=== PATIENT | female | born 1960 | race Caucasian/White ===

== ENCOUNTER 2018-03-20 11:32 | Emergency (ER) | payer MEDICARE, MEDICAID ==
[2018-03-20] MEDS ORDERED: Sodium Chloride 0.9% 10 ML Syringe FLUSH PRN (12:02)
[2018-03-20] MEDS ORDERED: Sodium Chloride 0.9% 1,000 ML IV ONE (12:02)
[2018-03-20] MEDS ORDERED: Albuterol/Ipratropium 3.0-0.5 MG/3 ML Neb Soln NEB ONE (12:02)
[2018-03-20 13:55] LABS: ANION GAP 9.2 mmol/L (10-20)
--- NOTE | 2018-03-20 13:58 | EDM.PDOC ---
ED HPI GENERAL MEDICAL PROBLEM - General Chief Complaint: Neurological Problem Stated Complaint: difficult to rouse in morning, slow Time Seen by Provider: 03/20/18 11:34 Source of Information: Reports: Family History Limitations: Reports: Physical Impairment (down's syndrome) - History of Present Illness INITIAL COMMENTS - FREE TEXT/NARRATIVE: Patient arrives via EMS with complaints from the sister that over the last 2 days Devorah has been hard to wake in the morning and very tired all day. On arrival to the unit, her oxygen level was 85% per EMS on room air. Currently wearing 3L and saturations are low to mid 90's. History taking is difficult from the patient herself, however her sister seems to be primary caregiver and knows her quite well. Sister denies fever, chills, states she has not complained of chest pain or pressure. No complaints of urinary burning, frequency, or hematuria. No blood in stools. No vomiting. Endorses weakness and tiredness over last 2 days. Location: Reports: Generalized Associated Symptoms: Reports: No Other Symptoms Treatments HEAD OF MARKETING: Reports: Oxygen - Related Data Allergies Allergy/AdvReac Type Severity Reaction Status Date / Time Dairy Products Allergy Diarrhea Verified 03/20/18 12:02 Home Meds: Home Meds FLUoxetine [PROzac] 10 mg DAILY 03/20/18 [History] Fludrocortisone [Florinef] 0.1 mg DAILY 03/20/18 [History] Levothyroxine 125 mcg DAILY 03/20/18 [History] risperiDONE [Risperidone] 2 ml BEDTIME 03/20/18 [History] ED ROS GENERAL - Review of Systems Review Of Systems: See Below Constitutional: Reports: No Symptoms HEENT: Reports: No Symptoms Respiratory: Reports: Shortness of Breath Cardiovascular: Reports: No Symptoms Endocrine: Reports: No Symptoms GI/Abdominal: Reports: No Symptoms : Reports: No Symptoms Musculoskeletal: Reports: No Symptoms Skin: Reports: No Symptoms Neurological: Reports: Weakness Psychiatric: Reports: No Symptoms Hematologic/Lymphatic: Reports: No Symptoms Immunologic: Reports: No Symptoms - Physical Exam Exam: See Below Exam Limited By: Physical Impairment General Appearance: Alert, WD/WN, No Apparent Distress Eye Exam: Bilateral Eye: EOMI, Normal Inspection, PERRL Ears: Normal TMs Throat/Mouth: Normal Inspection, Normal Lips, Normal Teeth, Normal Gums, Normal Oropharynx, Normal Voice, No Airway Compromise Head Exam: Atraumatic, Normocephalic Neck: Normal Inspection, Supple, Non-Tender, Full Range of Motion Respiratory/Chest: Wheezing Cardiovascular: Systolic Murmur, Irregularly Irregular GI/Abdominal: Normal Bowel Sounds, Soft, Non-Tender, No Organomegaly, No Distention, No Abnormal Bruit, No Mass Neuro Exam (Abbreviated): Alert, CN II-XII Intact, No Motor/Sensory Deficits Extremities: Normal Inspection, Normal Range of Motion, Non-Tender, No Pedal Edema, Normal Capillary Refill Psychiatric: Normal Affect, Normal Mood Skin Exam: Warm, Dry, Intact, Normal Color, No Rash Course - Vital Signs Last Recorded V/S: Last Vital Signs Temp 37.2 C 03/20/18 11:32 Pulse 93 03/20/18 11:32 Resp 20 03/20/18 11:32 BP 137/80 03/20/18 11:32 Pulse Ox 85 L 03/20/18 11:34 - Orders/Labs/Meds Orders: Active Orders 24 hr Category Date Time Status EKG Documentation Completion [RC] ROUTINE Care 03/20/18 12:02 Ordered Oxygen Therapy Adult [Oxygen Therapy, ED] [RC] Care 03/20/18 12:04 Ordered ASDIRECTED RT Aerosol Therapy [RC] ASDIRECTED Care 03/20/18 12:03 Ordered Chest 1V Frontal [CR] Stat Exams 03/20/18 12:02 Ordered CULTURE BLOOD [BC] Stat Lab 03/20/18 12:03 Ordered CULTURE BLOOD [BC] Stat Lab 03/20/18 12:03 Ordered CULTURE URINE [RM] Stat Lab 03/20/18 12:02 Ordered UA W/MICROSCOPIC [URIN] Stat Lab 03/20/18 12:02 Ordered Sodium Chloride 0.9% [Saline Flush] Med 03/20/18 12:02 Ordered 10 ml FLUSH ASDIRECTED PRN Blood Culture x2 Reflex Set [OM.PC] Stat Oth 03/20/18 12:02 Ordered Saline Lock Insert [OM.PC] Routine Oth 03/20/18 12:02 Ordered Medication Orders Sodium Chloride (Saline Flush) 10 ml FLUSH ASDIRECTED PRN PRN Reason: Keep Vein Open Labs: Laboratory Tests 03/20/18 03/20/18 03/20/18 Range/Units 12:35 13:07 13:07 WBC 7.6 (4.0-10.0) x10^3/uL RBC 4.96 (4.00-5.50) x10^6/uL Hgb 16.3 H (12.0-16.0) g/dL Hct 50.3 H (33.0-47.0) % MCV 101.4 H (78.0-93.0) fL MCH 32.9 H (26.0-32.0) pg MCHC 32.4 (32.0-36.0) g/dL RDW Coeff of Edwin 18.2 H (10.0-15.0) % Plt Count 200 (130-400) x10^3/uL Neut % (Auto) 81.4 H (50.0-80.0) % Lymph % (Auto) 13.3 L (25.0-50.0) % Schley % (Auto) 4.9 (2.0-11.0) % Eos % (Auto) 0.3 (0.0-4.0) % Baso % (Auto) 0.1 L (0.2-1.2) % PT (9.6-11.4) SEC INR (2.0-3.5) D-Dimer, Quantitative (<=0.58) mg/LFEU Sodium 143 (136-145) mmol/L Potassium 4.2 (3.5-5.1) mmol/L Chloride 105 (98-107) mmol/L Carbon Dioxide 33 H (21-32) mmol/L Anion Gap 9.2 L (10-20) mmol/L BUN 8 (7-18) mg/dL Creatinine 1.0 (0.55-1.02) mg/dL Est Cr Clr Drug Dosing 45.12 mL/min Estimated GFR (MDRD) 57 Glucose 111 H (74-106) mg/dL Lactic Acid (0.4-2.0) mmol/L Calcium 8.4 L (8.5-10.1) mg/dL Corrected Calcium 9.44 (8.5-10.1) mg/dL Total Bilirubin 0.5 (0.2-1.0) mg/dL AST 11 L (15-37) U/L ALT 11 L (14-59) U/L Alkaline Phosphatase 66 (46-116) U/L Creatine Kinase 30 (26-192) U/L Troponin I 0.034 (<=0.056) ng/mL NT-Pro-B Natriuret Pep 1945 H (<=125) pg/mL Total Protein 6.7 (6.4-8.2) g/dL Albumin 2.7 L (3.4-5.0) g/dL Globulin 4.0 Albumin/Globulin Ratio 0.68 TSH, Ultra Sensitive 0.575 (0.358-3.74) uIU/mL Urine Color Yellow (YELLOW) Urine Appearance Slightly cloudy H (CLEAR) Urine pH 7.0 (5.0-8.0) Ur Specific [place] 1.025 Urine Protein Trace H (NEGATIVE) mg/dL Urine Glucose (UA) Negative (NEGATIVE) mg/dL Urine Ketones Negative (NEGATIVE) mg/dL Urine Occult Blood Negative (NEGATIVE) Urine Nitrite Negative (NEGATIVE) Urine Bilirubin Negative (NEGATIVE) Urine Urobilinogen 0.2 (0.2) EU/dL Ur Leukocyte Esterase Negative (NEGATIVE) Urine RBC 0-5 (NOT SEEN) /HPF Urine WBC 0-5 (NOT SEEN) /HPF Ur Squamous Epith Cells Many H (NEGATIVE) /HPF Urine Bacteria Few H (NEGATIVE) /HPF Urine Mucus Moderate H (NEGATIVE) /LPF 03/20/18 03/20/18 03/20/18 Range/Units 13:07 13:07 13:07 WBC (4.0-10.0) x10^3/uL RBC (4.00-5.50) x10^6/uL Hgb (12.0-16.0) g/dL Hct (33.0-47.0) % MCV (78.0-93.0) fL MCH (26.0-32.0) pg MCHC (32.0-36.0) g/dL RDW Coeff of Edwin (10.0-15.0) % Plt Count (130-400) x10^3/uL Neut % (Auto) (50.0-80.0) % Lymph % (Auto) (25.0-50.0) % Schley % (Auto) (2.0-11.0) % Eos % (Auto) (0.0-4.0) % Baso % (Auto) (0.2-1.2) % PT 12.1 H (9.6-11.4) SEC INR 1.2 L (2.0-3.5) D-Dimer, Quantitative 0.48 (<=0.58) mg/LFEU Sodium (136-145) mmol/L Potassium (3.5-5.1) mmol/L Chloride (98-107) mmol/L Carbon Dioxide (21-32) mmol/L Anion Gap (10-20) mmol/L BUN (7-18) mg/dL Creatinine (0.55-1.02) mg/dL Est Cr Clr Drug Dosing mL/min Estimated GFR (MDRD) Glucose (74-106) mg/dL Lactic Acid 2.0 (0.4-2.0) mmol/L Calcium (8.5-10.1) mg/dL Corrected Calcium (8.5-10.1) mg/dL Total Bilirubin (0.2-1.0) mg/dL AST (15-37) U/L ALT (14-59) U/L Alkaline Phosphatase (46-116) U/L Creatine Kinase (26-192) U/L Troponin I (<=0.056) ng/mL NT-Pro-B Natriuret Pep (<=125) pg/mL Total Protein (6.4-8.2) g/dL Albumin (3.4-5.0) g/dL Globulin Albumin/Globulin Ratio TSH, Ultra Sensitive (0.358-3.74) uIU/mL Urine Color (YELLOW) Urine Appearance (CLEAR) Urine pH (5.0-8.0) Ur Specific [place] Urine Protein (NEGATIVE) mg/dL Urine Glucose (UA) (NEGATIVE) mg/dL Urine Ketones (NEGATIVE) mg/dL Urine Occult Blood (NEGATIVE) Urine Nitrite (NEGATIVE) Urine Bilirubin (NEGATIVE) Urine Urobilinogen (0.2) EU/dL Ur Leukocyte Esterase (NEGATIVE) Urine RBC (NOT SEEN) /HPF Urine WBC (NOT SEEN) /HPF Ur Squamous Epith Cells (NEGATIVE) /HPF Urine Bacteria (NEGATIVE) /HPF Urine Mucus (NEGATIVE) /LPF Meds: Medications Generic Name Dose Route Start Last Admin Trade Name Freq PRN Reason Stop Dose Admin Sodium Chloride 10 ml 03/20/18 12:02 Saline Flush FLUSH ASDIRECTED PRN Keep Vein Open Discontinued Medications Generic Name Dose Route Start Last Admin Trade Name Freq PRN Reason Stop Dose Admin Albuterol/Ipratropium 3 ml 03/20/18 12:02 03/20/18 12:59 Duoneb 3.0-0.5 Mg/3 Ml NEB 03/20/18 12:03 3 ml ONETIME ONE Administration Sodium Chloride 1,000 mls @ 999 mls/hr 03/20/18 12:02 03/20/18 12:45 Normal Saline IV 03/20/18 13:02 999 mls/hr ONETIME ONE Administration - Radiology Interpretation Free Text/Narrative:: chest x-ray shows right lung atelectasis, other varela normal x-ray - Re-Assessments/Exams Free Text/Narrative Re-Assessment/Exam: 03/20/18 14:16 I did visit with Dr. Jara regarding patient care. He agrees with providing a full work up with regards to her daytime somnolence and hypoxia. Departure - Departure Time of Disposition: 14:24 Disposition: Home, Self-Care 01 Condition: Fair Clinical Impression: CHF (congestive heart failure), Hypoxia, sleep related - Discharge Information *PRESCRIPTION DRUG MONITORING PROGRAM REVIEWED*: Not Applicable *COPY OF PRESCRIPTION DRUG MONITORING REPORT IN PATIENT CONNOR: Not Applicable Instructions: Heart Failure, [id number], Hypoxia, Sleep Apnea, [id number], Sleep Studies Referrals: Sha Jara MD [Primary Care Provider] - Forms: ED Department Discharge Additional Instructions: Please see DR. Jara over in the clinic after leaving here. Your labs show some elevated BNP which can indicate heart failure and increased fluid, your urine was largely normal and did not indicate a urinary infection. I would visit with Dr. Jara regarding a sleep study and a night time CPAP machine for sleep apnea, restarting oxygen, and look into a water pill that will minimally effect your blood pressure. If you have further questions or concerns, please call us at any time. - Problem List & Annotations (1) CHF (congestive heart failure) SNOMED Code(s): 01863719 Code(s): I50.9 - HEART FAILURE, UNSPECIFIED Status: Acute Priority: Medium Current Visit: Yes Qualifiers: Heart failure type: unspecified Heart failure chronicity: unspecified Qualified Code(s): I50.9 - Heart failure, unspecified (2) Hypoxia, sleep related SNOMED Code(s): 527063404 Code(s): G47.34 - IDIO SLEEP RELATED NONOBSTRUCTIVE ALVEOLAR HYPOVENTILATION Status: Acute Priority: Medium Current Visit: Yes - Problem List Review Problem List Initiated/Reviewed/Updated: Yes - My Orders Last 24 Hours: My Active Orders 03/20/18 12:02 EKG Documentation Completion [RC] ROUTINE Chest 1V Frontal [CR] Stat CULTURE URINE [RM] Stat UA W/MICROSCOPIC [URIN] Stat Sodium Chloride 0.9% [Saline Flush] 10 ml FLUSH ASDIRECTED PRN Blood Culture x2 Reflex Set [OM.PC] Stat Saline Lock Insert [OM.PC] Routine 03/20/18 12:03 RT Aerosol Therapy [RC] ASDIRECTED CULTURE BLOOD [BC] Stat CULTURE BLOOD [BC] Stat 03/20/18 12:04 Oxygen Therapy Adult [Oxygen Therapy, ED] [RC] ASDIRECTED - Assessment/Plan Last 24 Hours: My Active Orders 03/20/18 12:02 EKG Documentation Completion [RC] ROUTINE Chest 1V Frontal [CR] Stat CULTURE URINE [RM] Stat UA W/MICROSCOPIC [URIN] Stat Sodium Chloride 0.9% [Saline Flush] 10 ml FLUSH ASDIRECTED PRN Blood Culture x2 Reflex Set [OM.PC] Stat Saline Lock Insert [OM.PC] Routine 03/20/18 12:03 RT Aerosol Therapy [RC] ASDIRECTED CULTURE BLOOD [BC] Stat CULTURE BLOOD [BC] Stat 03/20/18 12:04 Oxygen Therapy Adult [Oxygen Therapy, ED] [RC] ASDIRECTED Assessment:: hypoxia CHF Plan: Please see DR. Jara over in the clinic after leaving here. Your labs show some elevated BNP which can indicate heart failure and increased fluid, your urine was largely normal and did not indicate a urinary infection. I would visit with Dr. Jara regarding a sleep study and a night time CPAP machine for sleep apnea, restarting oxygen, and look into a water pill that will minimally effect your blood pressure. If you have further questions or concerns, please call us at any time.
== END 2018-03-20 14:45 | disposition home or self-care (01) ==
LOC: VM.ED 11:32
DX: G47.34 Idiopathic sleep related nonobstructive alveolar hypoventilation (principal); I50.9 Heart failure, unspecified; Z91.011 Allergy to milk products
CPT/HCPCS: 36415; 71045; 80053; 81001; 82550; 83605; 83880; 84443; 84484; 85025; 85379; 85610; 87040; 87086; 87186; 93005; 96360; 99285; J7030; J7620-GY

== ENCOUNTER 2023-12-04 12:46 | Emergency (ER) | payer MEDICARE, MEDICAID ==
[2023-12-04 13:28] LABS: APPEARANCE,URINE CLEAR (CLEAR); BILIRUBIN,URINE NEGATIVE (NEGATIVE); COLOR,URINE LIGHT YELLOW (YELLOW); GLUCOSE,URINE NEGATIVE (NEGATIVE); KETONES,URINE NEGATIVE (NEGATIVE); LEUKOCYTE ESTERASE,URINE NEGATIVE (NEGATIVE); NITRITE,URINE NEGATIVE (NEGATIVE); OCCULT BLOOD,URINE TRACE-INTACT (NEGATIVE); PH,URINE 7.5 (5.0-8.0); PROTEIN,URINE NEGATIVE (NEGATIVE); UROBILINOGEN,URINE 0.2 EU/dL (0.2)
[2023-12-04 13:30] LABS: BACTERIA,URINE NOT SEEN /HPF (NOT SEEN); MUCUS,URINE NOT SEEN /LPF (NOT SEEN); RBC,URINE 0-5 /HPF (NOT SEEN); SQUAMOUS EPITHELIAL CELLS,UR RARE /HPF (NOT SEEN); WBC,URINE 0-5 /HPF (NOT SEEN)
[2023-12-04 13:44] LABS: EOSINOPHILS PERCENT AUTO 0.6 % (0.0-4.0); HEMATOCRIT 33.5 % (33.0-47.0); HEMOGLOBIN 11.2 g/dL (12.0-16.0); IMMATURE GRAN ABSOLUTE AUTO 0.01 x10^3/uL (0.00-0.07); LYMPHOCYTES ABSOLUTE AUTO 0.9 x10^3/uL (1.0-4.8); LYMPHOCYTES PERCENT AUTO 19.2 % (25.0-50.0); MEAN CORPUSCULAR HEMOGLOBIN 33.5 pg (26.0-32.0); MEAN CORPUSCULAR HGB CONC 33.4 g/dL (32.0-36.0); MEAN CORPUSCULAR VOLUME 100.3 fL (78.0-93.0); MONOCYTES ABSOLUTE AUTO 0.4 x10^3/uL (0.0-0.8); MONOCYTES PERCENT AUTO 8.5 % (2.0-11.0); NEUTROPHILS ABSOLUTE AUTO 3.4 x10^3/uL (1.8-7.7); NEUTROPHILS PERCENT AUTO 71.5 % (50.0-80.0); PLATELET COUNT,PLT 119 x10^3/uL (130-400); RED BLOOD CELL COUNT 3.34 x10^6/uL (4.00-5.50); WHITE BLOOD CELL COUNT,WBC 4.8 x10^3/uL (4.0-10.0)
[2023-12-04 14:01] LABS: A/G RATIO 0.54; ALANINE AMINOTRANSFERASE,ALT 8 U/L (14-59); ALKALINE PHOSPHATASE 82 U/L (46-116); ASPARTATE AMNIOTRANSFERASE,AST 21 U/L (15-37); BILIRUBIN TOTAL 0.6 mg/dL (0.2-1.0); BLOOD UREA NITROGEN,BUN 8 mg/dL (7-18); C-REACTIVE PROTEIN 5.76 mg/dL (<=0.50); CALCIUM 7.9 mg/dL (8.5-10.1); CARBON DIOXIDE,CO2 31 mmol/L (21-32); CHLORIDE,CL 106 mmol/L (98-107); CREATININE 0.6 mg/dL (0.55-1.02); ESTIMATED GFR 101 mL/min (>=60); GLUCOSE RANDOM 111 mg/dL (70-99); PROTEIN TOTAL,TP 5.7 g/dL (6.4-8.2); SODIUM,NA 141 mmol/L (136-145)
== END 2023-12-04 15:20 | disposition home or self-care (01) ==
LOC: SUPCPDRO 12:46 → VM.ED 12:46
DX: S82.301A Unspecified fracture of lower end of right tibia, initial encounter for closed fracture (principal); S82.831A Other fracture of upper and lower end of right fibula, initial encounter for closed fracture; E03.9 Hypothyroidism, unspecified; Z91.011 Allergy to milk products; Z79.899 Other long term (current) drug therapy; W19.XXXA Unspecified fall, initial encounter
CPT/HCPCS: 36415; 71045; 73600-RT; 80053; 81001; 85025; 86140; 99283; 99284

== ENCOUNTER 2024-02-02 13:07 | Emergency (ER) | payer MEDICARE, MEDICAID ==
[2024-02-02] MEDS: Nystatin Crm 30 GM Tube TOP SCH (14:15)
[2024-02-02 14:19] LABS: APPEARANCE,URINE CLEAR (CLEAR); COLOR,URINE POC YELLOW (YELLOW); PH,URINE 6.5 (5.0-8.0); PROTEIN,URINE POC NEGATIVE (NEGATIVE)
[2024-02-02 14:20] LABS: BILIRUBIN,URINE POC NEGATIVE (NEGATIVE); GLUCOSE,URINE POC NEGATIVE (NEGATIVE); KETONES,URINE POC NEGATIVE (NEGATIVE); LEUKOCYTE ESTERASE,URINE POC NEGATIVE (NEGATIVE); NITRITE,URINE POC NEGATIVE (NEGATIVE); OCCULT BLOOD,URINE POC NEGATIVE (NEGATIVE); UROBILINOGEN,URINE POC 0.2 (0.2)
== END 2024-02-02 14:50 | disposition home or self-care (01) ==
LOC: VM.ED 13:07
DX: B37.9 Candidiasis, unspecified (principal); I50.9 Heart failure, unspecified; E03.9 Hypothyroidism, unspecified; E66.9 Obesity, unspecified; Z79.899 Other long term (current) drug therapy; Z91.011 Allergy to milk products; Z68.30 Body mass index [BMI] 30.0-30.9, adult
CPT/HCPCS: 81002; 87086; 99284; A9270

== ENCOUNTER 2024-08-29 10:15 | Emergency (ER) | payer MEDICARE, MEDICAID ==
[2024-08-29] MEDS ORDERED: Sodium Chloride 0.9% 10 ML Syringe FLUSH PRN (10:39)
[2024-08-29 11:07] LABS: BASOPHILS PERCENT AUTO 0.2 % (0.2-1.2); HEMATOCRIT 33.1 % (33.0-47.0); HEMOGLOBIN 11.3 g/dL (12.0-16.0); IMMATURE GRAN ABSOLUTE AUTO 0.01 x10^3/uL (0.00-0.07); LYMPHOCYTES ABSOLUTE AUTO 0.9 x10^3/uL (1.0-4.8); LYMPHOCYTES PERCENT AUTO 10.3 % (25.0-50.0); MEAN CORPUSCULAR HEMOGLOBIN 34.3 pg (26.0-32.0); MEAN CORPUSCULAR HGB CONC 34.1 g/dL (32.0-36.0); MEAN CORPUSCULAR VOLUME 100.6 fL (78.0-93.0); MONOCYTES ABSOLUTE AUTO 0.3 x10^3/uL (0.0-0.8); MONOCYTES PERCENT AUTO 2.8 % (2.0-11.0); NEUTROPHILS ABSOLUTE AUTO 7.7 x10^3/uL (1.8-7.7); NEUTROPHILS PERCENT AUTO 86.6 % (50.0-80.0); PLATELET COUNT,PLT 119 x10^3/uL (130-400); RED BLOOD CELL COUNT 3.29 x10^6/uL (4.00-5.50); WHITE BLOOD CELL COUNT,WBC 8.9 x10^3/uL (4.0-10.0)
[2024-08-29 11:19] LABS: APPEARANCE,URINE CLEAR (CLEAR); BILIRUBIN,URINE NEGATIVE (NEGATIVE); COLOR,URINE YELLOW (YELLOW); GLUCOSE,URINE NEGATIVE (NEGATIVE); KETONES,URINE TRACE mg/dL (NEGATIVE); LEUKOCYTE ESTERASE,URINE NEGATIVE (NEGATIVE); NITRITE,URINE NEGATIVE (NEGATIVE); OCCULT BLOOD,URINE NEGATIVE (NEGATIVE); PROTEIN,URINE 30 mg/dL (NEGATIVE); UROBILINOGEN,URINE 0.2 EU/dL (0.2)
[2024-08-29 11:28] LABS: LACTIC ACID 1.1 mmol/L (0.4-2.0)
[2024-08-29 11:28] LABS: RBC,URINE 0-5 /HPF (NOT SEEN); SQUAMOUS EPITHELIAL CELLS,UR FEW /HPF (NOT SEEN); WBC,URINE 0-5 /HPF (NOT SEEN)
[2024-08-29 11:29] LABS: BACTERIA,URINE RARE /HPF (NOT SEEN); MUCUS,URINE FEW /LPF (NOT SEEN)
[2024-08-29 11:34] LABS: A/G RATIO 0.57; ALANINE AMINOTRANSFERASE,ALT 24 U/L (14-59); ALBUMIN 2.1 g/dL (3.4-5.0); ALKALINE PHOSPHATASE 69 U/L (46-116); ASPARTATE AMNIOTRANSFERASE,AST 25 U/L (15-37); BILIRUBIN TOTAL 0.7 mg/dL (0.2-1.0); BLOOD UREA NITROGEN,BUN 11 mg/dL (7-18); CALCIUM 8.1 mg/dL (8.5-10.1); CARBON DIOXIDE,CO2 31 mmol/L (21-32); CHLORIDE,CL 103 mmol/L (98-107); CREATININE 0.8 mg/dL (0.55-1.02); GLUCOSE RANDOM 109 mg/dL (70-99); MAGNESIUM 2.2 mg/dL (1.8-2.4); POTASSIUM,K 4.2 mmol/L (3.5-5.1); PROTEIN TOTAL,TP 5.8 g/dL (6.4-8.2); SODIUM,NA 140 mmol/L (136-145); TSH ULTRASENSITIVE 2.375 uIU/mL (0.358-3.74)
[2024-08-29 11:36] LABS: ANION GAP 10.2 mmol/L (5-15); ESTIMATED GFR 83 mL/min (>=60)
[2024-08-29] MEDS: cefTRIAXone 1 GM Vial IVPUSH ONE (11:36)
[2024-08-29] MEDS: Lactated Ringers 1,000 ML IV ONE (11:38)
[2024-08-29] MEDS: Hydrocortisone Sodium Succinate 100 MG/2 ML SDV IVPUSH ONE (12:23)
== END 2024-08-29 12:45 | disposition home or self-care (01) ==
LOC: VM.ED 10:15
DX: J18.9 Pneumonia, unspecified organism (principal); E86.0 Dehydration; E03.9 Hypothyroidism, unspecified; E66.9 Obesity, unspecified; Z79.899 Other long term (current) drug therapy; Z91.011 Allergy to milk products
CPT/HCPCS: 36415; 70450; 71045; 80053; 81001; 83605; 83735; 84443; 85025; 86140; 87040; 87428-QW; 96361; 96374; 96375; 99284; 99285-25; J0696; J1720; J7120

== ENCOUNTER 2024-09-02 15:38 | Inpatient (IN) | payer MEDICARE, MEDICAID ==
[2024-09-02 17:33] LABS: BASOPHILS PERCENT AUTO 0.2 % (0.2-1.2); EOSINOPHILS ABSOLUTE AUTO 0.2 x10^3/uL (0.0-0.5); EOSINOPHILS PERCENT AUTO 1.7 % (0.0-4.0); HEMATOCRIT 23.7 % (33.0-47.0); IMMATURE GRAN ABSOLUTE AUTO 0.05 x10^3/uL (0.00-0.07); LYMPHOCYTES ABSOLUTE AUTO 1.1 x10^3/uL (1.0-4.8); LYMPHOCYTES PERCENT AUTO 11.8 % (25.0-50.0); MEAN CORPUSCULAR HEMOGLOBIN 35.2 pg (26.0-32.0); MEAN CORPUSCULAR HGB CONC 33.8 g/dL (32.0-36.0); MEAN CORPUSCULAR VOLUME 104.4 fL (78.0-93.0); MONOCYTES ABSOLUTE AUTO 0.5 x10^3/uL (0.0-0.8); MONOCYTES PERCENT AUTO 5.9 % (2.0-11.0); NEUTROPHILS ABSOLUTE AUTO 7.2 x10^3/uL (1.8-7.7); NEUTROPHILS PERCENT AUTO 79.8 % (50.0-80.0); PLATELET COUNT,PLT 137 x10^3/uL (130-400); RED BLOOD CELL COUNT 2.27 x10^6/uL (4.00-5.50)
[2024-09-02] MEDS: Sodium Chloride 0.9% 1,000 ML IV ONE (17:45)
[2024-09-02 17:53] LABS: A/G RATIO 0.52; ALBUMIN 1.7 g/dL (3.4-5.0); BILIRUBIN TOTAL 0.5 mg/dL (0.2-1.0); CALCIUM 7.8 mg/dL (8.5-10.1); CREATININE 0.6 mg/dL (0.55-1.02); EST CRCL DRUG DOSING (CG) 69.83 mL/min; POTASSIUM,K 3.4 mmol/L (3.5-5.1)
[2024-09-02 17:54] LABS: ANION GAP 8.4 mmol/L (5-15)
[2024-09-02 17:55] LABS: LACTIC ACID 0.5 mmol/L (0.4-2.0)
[2024-09-02 19:41] LABS: APPEARANCE,URINE SLIGHTLY CLOUDY (CLEAR); BILIRUBIN,URINE SMALL (NEGATIVE); COLOR,URINE DARK YELLOW (YELLOW); GLUCOSE,URINE NEGATIVE (NEGATIVE); KETONES,URINE 15 mg/dL (NEGATIVE); LEUKOCYTE ESTERASE,URINE NEGATIVE (NEGATIVE); NITRITE,URINE NEGATIVE (NEGATIVE); OCCULT BLOOD,URINE MODERATE (NEGATIVE); PROTEIN,URINE 100 mg/dL (NEGATIVE); UROBILINOGEN,URINE 0.2 EU/dL (0.2)
[2024-09-02 19:48] LABS: WBC,URINE 0-5 /HPF (NOT SEEN)
[2024-09-02 19:49] LABS: BACTERIA,URINE FEW /HPF (NOT SEEN); EPITHELIAL CELLS,URINE FEW
[2024-09-02] MEDS: Piperacillin/Tazobactam 4.5 GM in Sodium Chloride 0.9% 100 ML IV ONE (19:55)
[2024-09-02] MEDS ORDERED: Ondansetron 4 MG/2 ML SDV IV PRN (22:52)
[2024-09-02] MEDS ORDERED: Acetaminophen 325 MG Tab PO PRN (22:52)
[2024-09-02] MEDS: Azithromycin 500 MG in Sodium Chloride 0.9% 250 ML IV SCH (23:15)
[2024-09-02] MEDS: cefTRIAXone 2 GM Vial IVPUSH SCH (23:27)
[2024-09-03] MEDS ORDERED: Menthol 10%/Methyl Salicylate 15% 85 GM Tube TOP PRN (00:10)
[2024-09-03] MEDS: NS with KCl 40mEq 1,000 ML IV SCH (01:03)
[2024-09-03] MEDS: Levothyroxine 88 MCG Tab PO SCH (06:12)
[2024-09-03 06:59] LABS: BASOPHILS PERCENT AUTO 0.2 % (0.2-1.2); EOSINOPHILS ABSOLUTE AUTO 0.1 x10^3/uL (0.0-0.5); EOSINOPHILS PERCENT AUTO 0.9 % (0.0-4.0); HEMATOCRIT 23.8 % (33.0-47.0); HEMOGLOBIN 7.9 g/dL (12.0-16.0); LYMPHOCYTES PERCENT AUTO 11.2 % (25.0-50.0); MEAN CORPUSCULAR HEMOGLOBIN 34.5 pg (26.0-32.0); MEAN CORPUSCULAR HGB CONC 33.2 g/dL (32.0-36.0); MEAN CORPUSCULAR VOLUME 103.9 fL (78.0-93.0); MONOCYTES ABSOLUTE AUTO 0.4 x10^3/uL (0.0-0.8); MONOCYTES PERCENT AUTO 4.8 % (2.0-11.0); NEUTROPHILS ABSOLUTE AUTO 7.6 x10^3/uL (1.8-7.7); NEUTROPHILS PERCENT AUTO 81.8 % (50.0-80.0); PLATELET COUNT,PLT 156 x10^3/uL (130-400); RED BLOOD CELL COUNT 2.29 x10^6/uL (4.00-5.50); WHITE BLOOD CELL COUNT,WBC 9.2 x10^3/uL (4.0-10.0)
[2024-09-03 07:15] LABS: CALCIUM 7.5 mg/dL (8.5-10.1); CREATININE 0.5 mg/dL (0.55-1.02); EST CRCL DRUG DOSING (CG) 83.8 mL/min; POTASSIUM,K 3.9 mmol/L (3.5-5.1)
[2024-09-03 07:17] LABS: ANION GAP 9.9 mmol/L (5-15)
[2024-09-03] MEDS: Fludrocortisone 0.1 MG Tab PO SCH (08:23)
[2024-09-03] MEDS: Clobetasol 0.05% Crm 30 GM Tube SCH (08:23)
[2024-09-03] MEDS: FLUoxetine 10 MG Cap PO SCH (08:23)
[2024-09-03] MEDS: Loperamide 2 MG Cap PO PRN (10:19)
[2024-09-03] MEDS: Sodium Chloride 0.9% 1,000 ML IV ONE (18:30)
[2024-09-03] MEDS ORDERED: RISPERIDONE 1 MG/1 ML PO SCH (21:00)
[2024-09-03] MEDS ORDERED: risperiDONE 1 MG Tab PO SCH (21:00)
[2024-09-03] MEDS ORDERED: RISPERIDONE PO SCH (21:00)
[2024-09-03] MEDS: RISPERIDONE 1 MG/1 ML PO SCH (21:40)
[2024-09-04 07:06] LABS: BASOPHILS PERCENT AUTO 0.2 % (0.2-1.2); EOSINOPHILS ABSOLUTE AUTO 0.1 x10^3/uL (0.0-0.5); EOSINOPHILS PERCENT AUTO 0.7 % (0.0-4.0); HEMATOCRIT 22.8 % (33.0-47.0); HEMOGLOBIN 7.4 g/dL (12.0-16.0); IMMATURE GRAN ABSOLUTE AUTO 0.13 x10^3/uL (0.00-0.07); LYMPHOCYTES PERCENT AUTO 11.6 % (25.0-50.0); MEAN CORPUSCULAR HEMOGLOBIN 34.1 pg (26.0-32.0); MEAN CORPUSCULAR HGB CONC 32.5 g/dL (32.0-36.0); MEAN CORPUSCULAR VOLUME 105.1 fL (78.0-93.0); MONOCYTES ABSOLUTE AUTO 0.5 x10^3/uL (0.0-0.8); MONOCYTES PERCENT AUTO 5.9 % (2.0-11.0); NEUTROPHILS ABSOLUTE AUTO 6.6 x10^3/uL (1.8-7.7); PLATELET COUNT,PLT 172 x10^3/uL (130-400); RED BLOOD CELL COUNT 2.17 x10^6/uL (4.00-5.50); WHITE BLOOD CELL COUNT,WBC 8.2 x10^3/uL (4.0-10.0)
[2024-09-04 07:22] LABS: ANION GAP 8.1 mmol/L (5-15); CALCIUM 7.5 mg/dL (8.5-10.1); CREATININE 0.4 mg/dL (0.55-1.02); EST CRCL DRUG DOSING (CG) 104.74 mL/min; POTASSIUM,K 4.1 mmol/L (3.5-5.1)
[2024-09-04] MEDS: traMADol 50 MG Tab PO PRN (11:29)
[2024-09-04] MEDS: Clobetasol 0.05% Crm 30 GM Tube TOP SCH (21:45)
[2024-09-04] MEDS: Sodium Chloride 0.9% 1,000 ML IV SCH (22:16)
[2024-09-05 06:55] LABS: HEMATOCRIT 23.6 % (33.0-47.0); HEMOGLOBIN 7.8 g/dL (12.0-16.0); MEAN CORPUSCULAR HEMOGLOBIN 34.4 pg (26.0-32.0); MEAN CORPUSCULAR HGB CONC 33.1 g/dL (32.0-36.0); RED BLOOD CELL COUNT 2.27 x10^6/uL (4.00-5.50); WHITE BLOOD CELL COUNT,WBC 9.1 x10^3/uL (4.0-10.0)
[2024-09-05 07:17] LABS: A/G RATIO 0.47; ALBUMIN 1.6 g/dL (3.4-5.0); BILIRUBIN TOTAL 0.5 mg/dL (0.2-1.0); CALCIUM 7.7 mg/dL (8.5-10.1); CREATININE 0.4 mg/dL (0.55-1.02); EST CRCL DRUG DOSING (CG) 104.74 mL/min; POTASSIUM,K 3.1 mmol/L (3.5-5.1)
[2024-09-05 07:18] LABS: ANION GAP 7.1 mmol/L (5-15)
[2024-09-05] MEDS: traMADol 50 MG Tab PO PRN (09:42)
[2024-09-05] MEDS: Sodium Chloride 0.9% 10 ML Syringe FLUSH PRN (09:46)
[2024-09-05] MEDS: Albuterol/Ipratropium 3.0-0.5 MG/3 ML Neb Soln NEB PRN (15:02)
[2024-09-05] MEDS: Potassium Chloride 10 MEQ Tab.ER PO SCH (17:57)
[2024-09-06 08:16] LABS: HEMATOCRIT 24.4 % (33.0-47.0); MEAN CORPUSCULAR HEMOGLOBIN 33.9 pg (26.0-32.0); MEAN CORPUSCULAR HGB CONC 32.8 g/dL (32.0-36.0); MEAN CORPUSCULAR VOLUME 103.4 fL (78.0-93.0); RED BLOOD CELL COUNT 2.36 x10^6/uL (4.00-5.50); WHITE BLOOD CELL COUNT,WBC 8.2 x10^3/uL (4.0-10.0)
[2024-09-06 08:31] LABS: CALCIUM 7.3 mg/dL (8.5-10.1); CREATININE 0.5 mg/dL (0.55-1.02); EST CRCL DRUG DOSING (CG) 83.8 mL/min; POTASSIUM,K 3.3 mmol/L (3.5-5.1)
[2024-09-06 08:35] LABS: ANION GAP 5.3 mmol/L (5-15)
[2024-09-06] MEDS: Loperamide 2 MG Cap PO SCH (09:11)
[2024-09-06] MEDS: Lactobacillus Rhamnosus GG (Probiotic) Cap PO SCH (09:11)
[2024-09-07 08:59] LABS: HEMATOCRIT 23.1 % (33.0-47.0); HEMOGLOBIN 7.5 g/dL (12.0-16.0); MEAN CORPUSCULAR HEMOGLOBIN 33.6 pg (26.0-32.0); MEAN CORPUSCULAR HGB CONC 32.5 g/dL (32.0-36.0); MEAN CORPUSCULAR VOLUME 103.6 fL (78.0-93.0); RED BLOOD CELL COUNT 2.23 x10^6/uL (4.00-5.50)
[2024-09-07 09:14] LABS: CALCIUM 7.5 mg/dL (8.5-10.1); CREATININE 0.5 mg/dL (0.55-1.02); EST CRCL DRUG DOSING (CG) 83.8 mL/min
[2024-09-08] MEDS: Miconazole 2% Top Powder 45 GM Container TOP PRN (14:33)
== END 2024-09-08 15:00 | disposition home health service (06) | DRG 193 ==
LOC: VM.ED 15:38 → VM.MS 21:00 → EEVIPCON 21:00
PROVIDERS: ADMIT Internal Medicine; ATTEND Family Medicine
DX: J18.9 Pneumonia, unspecified organism (principal); R53.1 Weakness; J96.21 Acute and chronic respiratory failure with hypoxia; S72.92XA Unspecified fracture of left femur, initial encounter for closed fracture; Z68.28 Body mass index [BMI] 28.0-28.9, adult; S82.209A Unspecified fracture of shaft of unspecified tibia, initial encounter for closed fracture; Z79.890 Hormone replacement therapy; G93.40 Encephalopathy, unspecified; F03.90 Unspecified dementia, unspecified severity, without behavioral disturbance, psychotic disturbance, mood disturbance, and anxiety; K52.9 Noninfective gastroenteritis and colitis, unspecified; F32.A Depression, unspecified; E03.9 Hypothyroidism, unspecified; E66.9 Obesity, unspecified; D64.9 Anemia, unspecified; E87.6 Hypokalemia; I95.9 Hypotension, unspecified; G47.33 Obstructive sleep apnea (adult) (pediatric); M81.0 Age-related osteoporosis without current pathological fracture; M25.469 Effusion, unspecified knee; Z74.01 Bed confinement status; Q90.9 Down syndrome, unspecified; Z91.011 Allergy to milk products; Z79.899 Other long term (current) drug therapy; Z68.30 Body mass index [BMI] 30.0-30.9, adult; S72.92XD Unspecified fracture of left femur, subsequent encounter for closed fracture with routine healing
CPT/HCPCS: 36415; 71045; 73560-LT; 73600-LT; 80048; 80053; 81001; 83605; 83735; 85025; 85027; 87040; 87428-QW; 94640; 94760; 96361; 96365; 97161-GP; 99223; 99223-GT; 99232; 99232-GT; 99284; 99285-25; A9270-GY; J0456; J0696; J2543; J3480; J3490; J7030; J7050; J7620-GY; Q3014

== ENCOUNTER 2024-12-01 15:36 | Emergency (ER) | payer MEDICARE, MEDICAID | END 2024-12-01 16:55 | disposition home or self-care (01) | LOC: VM.ED 15:36 | DX: M16.11 Unilateral primary osteoarthritis, right hip (principal); E66.9 Obesity, unspecified; Z68.27 Body mass index [BMI] 27.0-27.9, adult; Z79.890 Hormone replacement therapy; Z91.011 Allergy to milk products | CPT/HCPCS: 99284 ==

== ENCOUNTER 2025-01-19 12:03 | Emergency (ER) | payer MEDICARE, MEDICAID | END 2025-01-19 12:37 | disposition home or self-care (01) | LOC: VM.ED 12:03 | DX: J18.9 Pneumonia, unspecified organism (principal); E66.9 Obesity, unspecified; Z79.899 Other long term (current) drug therapy; Z91.011 Allergy to milk products | CPT/HCPCS: 71045; 99284 ==